=== PATIENT | male | born 2000 | race Caucasian/White ===

== ENCOUNTER 2023-08-11 09:07 | Outpatient (CLI) | payer OTHER | END 2023-08-11 09:08 | disposition home or self-care (01) | LOC: DI 09:07 | PROVIDERS: ATTEND Physician Assistant | DX: R07.89 Other chest pain (principal); R55 Syncope and collapse; R06.00 Dyspnea, unspecified; R94.31 Abnormal electrocardiogram [ECG] [EKG] | CPT/HCPCS: 93306 ==

== ENCOUNTER 2023-12-19 08:12 | Emergency (ER) | payer OTHER ==
[2023-12-19 08:35] LABS: BASOPHILS % (AUTO) 0.5 %; EOSINOPHILS % (AUTO) 0.2 %; HCT - HEMATOCRIT 44.1 % (42.0-52.0); HGB - HEMOGLOBIN 14.9 g/dL (14.0-18.0); LYMPHOCYTES # (AUTO) 1.2 10^3/uL (1.5-3.5); LYMPHOCYTES % (AUTO) 14.3 %; MEAN CORPUSCULAR HEMOGLOBIN 30.7 pg (27.0-31.0); MEAN CORPUSCULAR HGB CONC 33.8 g/dL (32.0-36.0); MEAN CORPUSCULAR VOLUME 90.9 fL (80.0-94.0); MEAN PLATELET VOLUME 9.3 fL (7.4-11.4); MONOCYTES # (AUTO) 0.7 10^3/uL (0.0-1.0); MONOCYTES % (AUTO) 7.7 %; NEUTROPHILS # (AUTO) 6.5 10^3/uL (1.5-6.6); NEUTROPHILS % (AUTO) 77.1 %; PLT - PLATELET COUNT 265 10^3/uL (130-450); RED BLOOD COUNT 4.85 10^6/uL (4.70-6.10); RED CELL DISTRIBUTION WIDTH 11.6 % (12.0-15.0); WHITE BLOOD COUNT 8.4 x10^3/uL (4.8-10.8)
[2023-12-19 08:42] LABS: BILIRUBIN,URINE NEGATIVE (NEGATIVE); GLUCOSE, URINE (UA) NEGATIVE (NEGATIVE); KETONES,URINE (UA) NEGATIVE (NEGATIVE); LEUKOCYTE ESTERASE, URINE NEGATIVE (NEGATIVE); NITRITE,URINE NEGATIVE (NEGATIVE); OCCULT BLOOD,URINE NEGATIVE (NEGATIVE); PROTEIN,URINE NEGATIVE (NEGATIVE); UROBILINOGEN,URINE 0.2 (NORMAL) E.U./dL (NORMAL)
[2023-12-19 08:45] VITALS: O2SAT 98
[2023-12-19 08:46] LABS: CLARITY,URINE CLEAR (CLEAR)
--- NOTE | 2023-12-19 08:47 | ED Physician Documentation ---
PD HPI ABD PAIN - Stated complaint Stated Complaint: ABD/BACK PX/NAUSEA - Chief complaint Chief Complaint: Abd Pain - History obtained from History obtained from: Patient - Additional information Additional information: Patient is a 23-year-old male who is currently undergoing evaluation through [facility] for palpitations, presenting for evaluation of abdominal pain starting around 5:00 this morning. Patient reports having sharp periumbilical pain that was also present in his lower back. Initially was on both sides but now feels more on the right side and also reports pain in the right lower quadrant. He reports associated nausea and chills. Denies a history of kidney stones. Denies dysuria or hematuria. Has never had any abdominal surgeries. Denies chest pain or shortness of air. Review of Systems Constitutional: denies: Fever Cardiac: denies: Chest pain / pressure Respiratory: denies: Dyspnea GI: reports: Abdominal Pain, Nausea. denies: Vomiting, Bloody / black stool : denies: Dysuria, Hematuria PD PAST MEDICAL HISTORY - Past Medical History Past Medical History: Yes Neuro: Migraines - Past Surgical History Past Surgical History: No - Present Medications Home Medications: Ambulatory Orders Medication Instructions Recorded Confirmed HYDROcod/ACETAM 5/325 [[place] 5/325] 1 tablet PO Q6H PRN #8 tablet 12/19/23 Ondansetron Odt [Zofran] 4 mg TL Q6H PRN #10 tablet 12/19/23 - Allergies Allergies/Adverse Reactions: Allergies Allergy/AdvReac Type Severity Reaction Status Date / Time No Known Drug Allergies Allergy Verified 12/19/23 08:24 - Social History Does the pt smoke?: No Smoking Status: Never smoker Does the pt drink ETOH?: Yes Does the pt have substance abuse?: No - Immunizations Immunizations are current?: Yes PD ED PE NORMAL - General General: Alert and oriented X 3, No acute distress, Well developed/nourished - HEENT HEENT: Atraumatic, Moist mucous membranes, Pharynx benign - Neck Neck: Supple, no meningeal sign - Cardiac Cardiac: RRR, Strong equal pulses - Respiratory Respiratory: No respiratory distress, Clear bilaterally - Abdomen Abdomen: Normal bowel sounds, Soft, Non distended, Other (Right lower quadrant tenderness, No rebound, no guarding) - Derm Derm: Warm and dry - Neuro Neuro: Normal speech Results - Vitals Vitals: Vital Signs - 24 hr 04/15/24 04/15/24 04/15/24 08:20 08:39 10:22 Temperature 36.5 C 36.8 C Heart Rate 100 90 60 Respiratory 16 16 16 Rate Blood Pressure 140/87 H 107/68 104/70 O2 Saturation 100 98 98 Oxygen O2 Source Room air - Labs Labs: Laboratory Tests 12/19/23 12/19/23 12/19/23 08:31 08:31 08:33 WBC 8.4 RBC 4.85 Hgb 14.9 Hct 44.1 MCV 90.9 MCH 30.7 MCHC 33.8 RDW 11.6 L Plt Count 265 MPV 9.3 Neut # (Auto) 6.5 Lymph # (Auto) 1.2 L [place] # (Auto) 0.7 Eos # (Auto) 0.0 Baso # (Auto) 0.0 Absolute Nucleated RBC 0.00 Nucleated RBC % 0.0 Sodium 138 Potassium 4.2 Chloride 104 Carbon Dioxide 28 Anion Gap 6.0 BUN 18 Creatinine 1.4 H Estimated GFR (MDRD) 62 L Glucose 94 Calcium 10.2 Total Bilirubin 0.9 AST 16 ALT 17 Alkaline Phosphatase 56 Total Protein 7.1 Albumin 4.6 Globulin 2.5 Albumin/Globulin Ratio 1.8 Lipase 41 Urine Color LT. YELLOW Urine Clarity CLEAR Urine pH 6.0 Ur Specific [place] <=1.005 Urine Protein NEGATIVE Urine Glucose (UA) NEGATIVE Urine Ketones NEGATIVE Urine Occult Blood NEGATIVE Urine Nitrite NEGATIVE Urine Bilirubin NEGATIVE Urine Urobilinogen 0.2 (NORMAL) Ur Leukocyte Esterase NEGATIVE Ur Microscopic Review NOT INDICATED Urine Culture Comments NOT INDICATED PD Medical Decision Making - ED course Complexity details: reviewed results, re-evaluated patient, d/w patient ED course: Pt with R sided abdominal pain starting suddenly this morning. Mild RLQ tenderness on exam. CBC, chemistries, UA reviewed - no significant findings. Pain better with IV morphine, toradol. CT abd/pelvis with normal appendix and no other acute findings. Repeat abdominal exam is benign. Pt aware that etiology of pain is unclear but reassuring he is improved. Aware of need for follow up with PCP and aware of concerning symptoms to return for. Departure - Departure Disposition: 01 Home, Self Care Clinical Impression: Right sided abdominal pain, Elevated serum creatinine Condition: Stable Instructions: ED Abdominal Pain Unkn Cause Male [facility] Prescriptions: HYDROcod/ACETAM 5/325 [[place] 5/325] 1 tablet PO Q6H PRN #8 tablet PRN Reason: Pain Ondansetron Odt [Zofran] 4 mg TL Q6H PRN #10 tablet PRN Reason: Nausea / Vomiting Comments: Your testing today does not reveal a cause for your abdominal pain. Your labs are overall reassuring. Your creatinine which is a marker of your kidney function was slightly elevated at 1.4. I would recommend reviewing this with your primary care doctor as I do not have any old lab testing to see what your baseline is. We did give you IV fluids As well as IV morphine and an antinausea medicine called Zofran today. Your urine does not show blood or markers of infection. Your white blood cell count is normal. Your CT scan shows a normal appendix and there were also no other findings such as a kidney stone. I have sent a small amount of narcotic pain medication and antinausea medication to [facility] in [place]. I am prescribing a short course of narcotic pain medication for you. These are potentially dangerous and addictive medications that should be used carefully. These medications may constipate you. Take an [id number] stool softener (docusate) twice daily with plenty of water while taking these medications. If you go 24 hours without a bowel movement, take [id number] miralax, per package instructions. Do not drink or drive while taking these medications. If you received narcotic or sedating medications while in the emergency department, do not drive for 24 hours. Store this medication in a safe, secure place and out of reach of children. It is a violation of federal law to give or sell this medication to another person or to use in a manner other than prescribed. The ED will not refill narcotic prescriptions, including prescriptions lost or stolen. To dispose of unwanted medications: 1. [facility] at [address] in [place] has a medication drop box. They accept prescription medications (in pill form) Tuesday through Tuesday 9:00 a.m. to 5:00 p.m. 2. The [facility] [employer] accepts prescription medications (in pill form only) for disposal year round. Call for more information. 3. Contact the [facility] for the next [employer] sponsored prescription drug collection event. , x7310, or [phone]; Note that many narcotic pain relievers also contain Tylenol/acetaminophen. Please ensure that your total dose of acetaminophen from all sources does not exceed 3 g (3000 mg) per day. Return to the emergency department with any worsening symptoms. Forms: Activity restrictions Discharge Date/Time: 12/19/23 10:29
[2023-12-19 08:51] LABS: ALBUMIN 4.6 g/dL (3.2-5.5); ALBUMIN/GLOBULIN RATIO 1.8 (1.0-2.2); BILIRUBIN,TOTAL 0.9 mg/dL (0.2-1.0); CALCIUM 10.2 mg/dL (8.5-10.3); CREATININE 1.4 mg/dL (0.6-1.3); POTASSIUM 4.2 mmol/L (3.5-4.5); TOTAL PROTEIN 7.1 g/dL (6.4-8.9)
[2023-12-19] MEDS: KETOROLAC 30 MG/ML VIAL IVP STA (08:53)
[2023-12-19] MEDS: MORPHINE 2 MG/ML CARPUJECT IVP STA (08:54)
[2023-12-19] MEDS: ONDANSETRON 4 MG/2 ML VIAL IVP STA (08:54)
[2023-12-19] MEDS ORDERED: iohexoL-300 100 ML VIAL ONE (09:12)
[2023-12-19] MEDS: iohexoL-300 100 ML VIAL IVP ONE (09:31)
--- NOTE | 2023-12-19 09:41 | CT Report ---
PROCEDURE: Abdomen/Pelvis W INDICATIONS: R sided abd tenderness CONTRAST: OMNI 300 100ML TECHNIQUE: After the administration of intravenous contrast, a CT scan of the abdomen and pelvis was performed. Images were recorded and evaluated at appropriate window settings. Reformats: coronal and sagittal. F or radiation dose reduction, the following was used: automated exposure control, adjustment of mA and /or kV according to patient size. COMPARISON: None. FINDINGS: Image quality: Diagnostic. Lower chest: Unremarkable. Liver: No solid mass. Gallbladder and biliary tree: No radiopaque stones or wall thickening. No biliary dilation. Spleen: No splenomegaly. Pancreas: No pancreatic ductal dilation. Adrenals: No adrenal nodule. Kidneys and ureters: No hydronephrosis. No renal cystic lesion which requires follow up. No solid mas s. Stomach, bowel and peritoneum: No bowel distension. No pathologic free fluid. Retrocecal appendix is normal in size. Moderate colonic stool. Lymph nodes: No central or retroperitoneal adenopathy. Vessels: No infrarenal aortic aneurysm. PELVIS Reproductive organs: Unremarkable. Bladder: No abnormal wall thickening, accounting for underdistention. Pelvic lymph nodes: No pelvic adenopathy by size criteria. Bones: No aggressive osseous abnormality. Other: No significant ventral or inguinal hernia. IMPRESSION: Normal appendix. No acute abnormality identified in the pelvis. Reviewed by: Jose De Jesus Rawls MD on 12/19/2023 9:40 AM PDT Approved by: Jose De Jesus Rawls MD on 12/19/2023 9:40 AM PDT Station ID: [id number]
[2023-12-19 10:28] VITALS: BP 104/70
== END 2023-12-19 10:29 | disposition home or self-care (01) ==
LOC: ED 08:12
DX: R10.33 Periumbilical pain (principal); R94.4 Abnormal results of kidney function studies
CPT/HCPCS: 36415; 74177; 80053; 81003; 83690; 85025; 96374; 96375; 99283; 99284; Q9967; 81001; 87086